=== PATIENT | male | born 1980 | race Caucasian/White ===

== ENCOUNTER 2025-09-12 14:18 | Emergency (ER) | payer BC, SELFPAY ==
--- OUTSIDE RECORDS SUMMARY | 2025-09-12 14:20 | XMS_ITS | Clinical Summary ---
[facility] Address [address], [place] [address] Care Team Providers Care Airport Refueling Handler Name Role Phone Found, No Pcp MD Primary Care Provider Unavailab le Source Comments You are receiving this document as you are listed as the primary care provider,follow-up provider, or the patient has been referred to you for consultation.This is in compliance with the Medicare and[facility] EHR Incentive Program,which states Providers who transition their patient to another setting of careor provider of care or refers their patient to another provider of care shouldprovide summary care record for each transition of care or referral. [facility] Allergies No known active allergies Medications No known medications Active Problems Problem Noted Date Diagnosed Date Closed fracture of part of fibula 07/15/2009 Overview (06/02/2017): LW Modifier: Left distal fibula fx and ankle sprain LW Onset: 14Jul2007 ; Fx Fibula NOS Closed Immunizations Immunization Administration Dates Next Due DTP 07/21/1981,02/14/1980,1979 ,1979 Hib (ActHIB) 07/21/1981 MMR 03/21/1984 OPV, Trivalent (Orimune or tOPV) 06/01/1985,03/11,02/14/1980,1979 TDAP (BOOSTRIX) 03/26/2015 Family History Medical History Relation Name Comments Anesthesia Reaction Negative Family History Broken Bones Negative Family History Cancer Negative Family History Clotting Disorder Negative Family History Diabetes Negative Family History Heart Disease Negative Family History Osteoporosis Negative Family History Rheumatologic Disease Negative Family History Social History Tobacco Use Types Packs/Day Years Used Date Smoking Tobacco: Former Cigarettes 1 4 Smokeless Tobacco: Never Comments:Quit smoking: Alcohol Use Standard Drinks/Week Comments Yes 0 (1 standard drink = 0.6 oz pur e alcohol) PHQ-2 Answer Date Recorded PHQ-2 Score 0 10/21/2021 Sex and Gender Information Value Date Recorded Sex Assigned at Not on file Legal Sex Male 3:28 AM CDT Gender Identity Not on file Sexual Orientation Not on file Last Filed Vital Signs Vital Sign Reading Time Taken Comments Blood Pressure 115/74 10/21/2021 1:26 PM SNOWBOARD INSTRUCTOR Pulse 78 10/21/2021 1:26 PM SNOWBOARD INSTRUCTOR Temperature 36.9 C (98.5 F) 10/21/2021 1:26 PM SNOWBOARD INSTRUCTOR Respiratory Rate 16 11/03/2016 2:24 PM SNOWBOARD INSTRUCTOR Oxygen Saturation 96% 12/30/2007 5:33 AM CDT Inhaled Oxygen Concentration - - Weight 90.4 kg (199 lb 6.4 oz) 10/21/2021 1:26 P M SNOWBOARD INSTRUCTOR Height 179.1 cm (5' 10.5) 11/03/2016 2:24 PM CS T Body Mass Index 28.21 11/03/2016 2:24 PM SNOWBOARD INSTRUCTOR Plan of Treatment Health Maintenance Due Date Last Done Comments Colon Cancer Screening Plan Due 1979 Hep C Screening (Preventive Services) 1979 HIV Screening (Preventive Services) 1995 Adult Preventive Visit 1997 HepB Vaccine (1) 1998 Cholesterol 2014 DTaP/Tdap/Td Vaccine (6 - Tdap) 03/26/2025 03/26/2015, 03/26/2015 (Completed), 07/21/1981, Additional history exists COVID-19 Vaccine (2 - season) 2025 09/18/2021 Influenza Vaccine (#1) 2025 Zoster/Shingles Vaccine (1 of 2) 2029 Hib Vaccine Completed 07/21/1981 IPV (Polio) Vaccine Completed 06/01/1985, 03/21/1981, 02/14/1980, Additional history exists HepA Vaccine Aged Out No longer eligi ble based on patient's age to complete this topic MCV4 Vaccine Aged Out No longer eligi ble based on patient's age to complete this topic Meningococcal B Vaccine Aged Out No l onger eligible based on patient's age to complete this topic Pneumococcal Vaccine Aged Out No long er eligible based on patient's age to complete this topic Insurance [facility] Care Teams Airport Refueling Handler Relationship Specialty Start Date End Date Found, No Pcp, [address] [place] [address] PCP - General 06/11/16
[2025-09-12 14:22] VITALS: BP 125/75; PULSE 69; RESP 18; TEMP 37; O2SAT 98; BMI 27.3
[2025-09-12 15:59] LABS: Hematocrit* 43.2 % (37.0-53.0); Hemoglobin* 14.9 gm/dL (13.5-17.5); Immature Granulocytes Abs Auto 0.01 K/uL (0.00-0.30); Immature Granulocytes Pct Auto 0.2 %; Lymphocytes Absolute Auto 1.66 K/uL (0.90-2.90); Mean Corpuscular HGB Conc 35 gm/dL (32-36); Mean Corpuscular Hemoglobin 32 pg (26-34); Mean Corpuscular Volume 92 fL (80-100); RDW Coefficient of Variation % 11.8 % (11.5-15.5); Red Blood Count* 4.71 m/uL (4.30-5.90); White Blood Count* 5.36 K/uL (4.50-11.00)
--- NOTE | 2025-09-12 16:03 | ED.GENADULT ---
HPI - General Adult General Time Seen by Provider: 16:03 Date Seen: 09/12/25 Chief complaint: Chest Pain Stated complaint: Chest pain Time Seen by Provider: 09/12/25 15:30 Source: patient Mode of arrival: ambulatory Limitations: no limitations History of Present Illness HPI narrative: Tomas is a 45-year-old male no real past medical history presents emergency department via private car with ongoing chest pain. Patient states he was on vacation last year and developed some upper chest pain and was seen in a [facility], workup there was benign. He did not follow-up as planned. Still lives in [place] but comes up here for work, this has been going on over the last 3 weeks, he did notice he has had some continuous chest pain on left side of his chest some radiation to his back which is there all the time. He does get some intermittent sharp pains to the area, sometimes he feels fluttering in his chest. Denies any cardiac history, no family history of cardiac disease, denies any smoking, he occasionally uses alcohol. Patient does get very anxious when he has this residual chest pain, making symptoms worse. 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 Denies any shortness of breath with the pain, no changes with inspiration, denies any diaphoresis, lightheadedness dizziness, no nausea vomiting or abdominal pain he has not had any urinary complaints no diarrhea. Patient is right-handed, does not do any heavy lifting. Pain is minimal at this time. Related Data Home Medications ?Medication ?Instructions ?Recorded ?Confirmed No Known Home Medications 09/12/25 09/12/25 Allergies Allergy/AdvReac Type Severity Reaction Status Date / Time No Known Drug Allergies Allergy Verified 09/12/25 17:19 Review of Systems Status of ROS: Reports: 10 or more systems reviewed and unremarkable except as noted in History and below PFSH PFS Social History Smoking Status: Unknown if ever smoked How often do you have a drink containing alcohol: never AUDIT-C Alcohol total score: 0 Non-prescribed substance use: denies use Exam Narrative: Exam Narrative: General: No obvious distress sitting comfortably HEENT: Pupils equal round reactive to light, extraocular muscles intact Neck: Supple Lungs: Clear to auscultation bilaterally Heart: Normal sinus rhythm, S1S2 There is some mild tenderness to palpation the left anterior chest wall Muscle skeletal: There is some tenderness to palpation this medial to his left scapula Abdomen: Soft nontender, bowel sounds present Neuro: Alert awake and oriented x3 Psych: Mood and affect normal Const: Vital Signs, click to edit/add: Vital Signs - 24 hr 09/12/25 14:22 09/12/25 16:40 Temperature 98.6 F 98.6 F Pulse Rate [Pulse Oximeter] 69 71 Respiratory Rate 18 18 Blood Pressure [Ri ght Upper Arm] 125/75 115/76 Pulse Oximetry 98 98 Oxygen Delivery Me thod Room Air Room Air Course Course ED Course: 3:45 PM: aidet performed, vitals are normal at this time, workup will include IV peripheral, 15 mg IV Toradol for his atypical chest pain, will obtain EKG, troponin T, D-dimer, CBC, CRP, CMP, lipase, differential includes chest wall pain, STEMI, NSTEMI, ACS, unstable angina, unstable angina, dissection, pleurisy, pneumonia, heart failure, anxiety as well as other etiologies. ED disposition pending clinical course Reevaluation(s) Time of Reevaluation #1: 17:54 Reevaluation #1: IMPRESSION: No pulmonary embolism. No focal consolidations. Please note that all CT scans at this facility use dose modulation, iterative reconstruction, and/or weight-based dosing when appropriate to reduce radiation dose to as low as reasonably achievable. EKG showed no acute ST changes, troponin I<0.01, imaging showed no acute cardiopulmonary process, D-dimer was negative, CBC showed no leukocytosis or anemia, comprehensive metabolic panel showed normal electrolytes, LFTs and renal function, symptom onset was 2 weeks ago, will not plan to repeat, he is feeling better after above care given, follow-up arranged with primary care provider here in [place], discussion can be made about outpatient stress echo, continue with Motrin and/or Tylenol every 4-6 hours as needed for discomfort. Return precautions given. Vital Signs Vital signs: Initial Vital Signs Temperature 98.6 F 09/12/25 14:22 Temperature Source Temporal Artery Scan 09/12/25 14:22 Pulse Rate 69 09/12/25 14:22 Respiratory Rate 18 09/12/25 14:22 Blood Pressure 125/75 09/12/25 14:22 Blood Pressure Mean 91 09/12/25 14:22 Pulse Oximetry 98 09/12/25 14:22 Oxygen Delivery Method Room Air 09/12/25 14:22 Vital Signs Temperature 98.6 F 09/12/25 14:22 Pulse Rate 69 09/12/25 14:22 Respiratory Rate 18 09/12/25 14:22 Blood Pressure 125/75 09/12/25 14:22 Pulse Oximetry 98 09/12/25 14:22 Oxygen Delivery Method Room Air 09/12/25 14:22 Temperature 98.6 F 09/12/25 16:40 Pulse Rate 71 09/12/25 16:40 Respiratory Rate 18 09/12/25 16:40 Blood Pressure 115/76 09/12/25 16:40 Pulse Oximetry 98 09/12/25 16:40 Oxygen Delivery Method Room Air 09/12/25 16:40 Medications Administered Medications: Discontinued Medications Generic Name Dose Route Start Last Admin Trade Name Freq PRN Reason Stop Dose Admin Ketorolac Tromethamine 15 mg 09/12/25 16:01 09/12/25 16:27 Ketorolac 15 Mg/Ml Inj IVP 09/12/25 16:02 15 mg ONCE ONE Administration Medical Decision Making Lab Data Labs: Lab Results 09/12/25 09/12/25 Range/Units 15:47 16:27 WBC 5.36 (4.50-11.00) K/uL RBC 4.71 (4.30-5.90) m/uL Hgb 14.9 (13.5-17.5) gm/dL Hct 43.2 (37.0-53.0) % MCV 92 (80-100) fL MCH 32 (26-34) pg MCHC 35 (32-36) gm/dL RDW Coeff of Josias 11.8 (11.5-15.5) % Plt Count 292 (140-440) K/uL Neut % (Auto) 55.4 (42.0-72.0) % Lymph % (Auto) 31.0 (20-44) % Hanson % (Auto) 12.1 H (0.0-11.0) % Eos % (Auto) 0.7 (0.0-7.0) % Baso % (Auto) 0.6 (0.0-3.0) % Neut # (Auto) 2.97 (1.7-7.0) K/uL Lymph # (Auto) 1.66 (0.90-2.90) K/uL Hanson # (Auto) 0.60 (0.00-0.90) K/UL Eos # (Auto) 0.04 (0.00-0.50) K/uL Baso # (Auto) 0.03 (0.00-0.30) K/uL Abs Immat Gran (auto) 0.01 (0.00-0.30) K/uL Imm/Tot Granulo (auto) 0.2 % D-Dimer Quant (PE/DVT) < 0.27 (0.00-0.50) ug/ml Sodium 139 (135-149) mmol/L Potassium 4.5 (3.6-5.1) mmol/L Chloride 100 (96-114) mmol/L Carbon Dioxide 28 (20-32) mmol/L Anion Gap 11 (7-15) mEq/L BUN 13 (5-24) mg/dL Creatinine 1.2 (0.5-1.5) mg/dL Estimated Creat Clear 81.92 Estimated GFR 76 ml/min Glucose 102 (60-115) mg/dL Calcium 9.1 (8.4-10.6) mg/dL Total Bilirubin 1.3 (0.1-1.5) mg/dL AST 22 (12-35) U/L ALT 23 (4-50) U/L Alkaline Phosphatase 42 (40-150) U/L Troponin I < 0.01 (0.01-0.04) ng/mL C-Reactive Protein < 0.5 L < 0.5 L (0.5-1.0) mg/dL Total Protein 7.4 (6.0-8.3) g/dL Albumin 4.6 (3.3-5.0) g/dL Lipase 93 (23-300) U/L Discharge Plan Discharge Clinical Impression: Atypical chest pain Patient Disposition: Home, Self-Care Condition: Improved Instructions: Chest Pain (ED) Additional Instructions: To call the Clinic and set up an appointment with Dr. Maite GAR, discuss at that time about a Stress Echo on outpatient basis, continue with Motrin and Tylenol every 6 hours as needed for discomfort. Return if worsening symptoms. Activity Level: No Restrictions Prescriptions: No Action No Known Home Medications Follow Up/Referrals: Provider,Not a Local [Primary Care Provider, Family Practice] Stand Alone Forms: [employer] Info Instructions
[2025-09-12 16:05] LABS: Slide Review Reflex No
[2025-09-12 16:12] LABS: Albumin* 4.6 g/dL (3.3-5.0); Chloride* 100 mmol/L (96-114); Potassium* 4.5 mmol/L (3.6-5.1); Sodium* 139 mmol/L (135-149)
[2025-09-12 16:14] LABS: Alanine Aminotransferase* 23 U/L (4-50); Aspartate Amino Transferase* 22 U/L (12-35); Blood Urea Nitrogen* 13 mg/dL (5-24); Creatinine* 1.2 mg/dL (0.5-1.5); Est. Creatinine Clearance* 81.92; Estimated Glomerular Filt Rate 76 ml/min
[2025-09-12 16:15] LABS: Alkaline Phosphatase* 42 U/L (40-150); Anion Gap 11 mEq/L (7-15); Bilirubin Total* 1.3 mg/dL (0.1-1.5); Calcium* 9.1 mg/dL (8.4-10.6); Carbon Dioxide* 28 mmol/L (20-32); Glucose* 102 mg/dL (60-115); Total Protein* 7.4 g/dL (6.0-8.3)
--- OUTSIDE RECORDS SUMMARY | 2025-09-12 16:23 | XMS_ITS | Patient Health Record ---
Author Organization [facility] Address [address] [place] [address] Care Team Providers Care Oven Stripper Name Role Phone Update, PCP Primary Care Provider Unavailabl e Allergies No Known Allergies Reason For Referral No Information Plan Of Treatment No Information Medical (General) History Surgical History Surgery Date(Month/Year) plate put in right wrist
--- OUTSIDE RECORDS SUMMARY | 2025-09-12 16:24 | XMS_ITS | Clinical Summary ---
Author Organization [facility] Address [facility] [place] [address] Care Team Providers Care Plastic Production Machine Setter Name Role Phone No/Unknown, Pcp Primary Care Provider Unavailabl e Allergies No known active allergies Medications meloxicam (MOBIC) 7.5 MG tablet Take 1 tablet by mouth daily. 20 tablet 10/05/2024 Active Social History Tobacco Use Types Packs/Day Years Used Date Smoking Tobacco: Never Smokeless Tobacco: Never Tobacco Cessation:Counseling Given: Not Answered Sex and Gender Information Value Date Recorded Sex Assigned at Not on file Legal Sex Male 9:22 AM EST Gender Identity Not on file Sexual Orientation Not on file Last Filed Vital Signs Vital Sign Reading Time Taken Comments Blood Pressure 120/82 10/05/2024 1:00 PM EST Pulse 58 10/05/2024 1:00 PM EST Temperature 36.3 C (97.4 F) 10/05/2024 9:33 AM EST Respiratory Rate 14 10/05/2024 1:00 PM EST Oxygen Saturation 99% 10/05/2024 1:00 PM EST Inhaled Oxygen Concentration - - Weight 86.2 kg (190 lb) 10/05/2024 9:33 AM EST Height 180.3 cm (5' 11) 10/05/2024 9:33 AM EST Body Mass Index 26.5 10/05/2024 9:33 AM EST Plan of Treatment Health Maintenance Due Date Last Done Comments HIV TESTING 1994 HEP C 1997 LIPID PROFILE 1997 YEARLY PHYSICAL ADULT 18+ 1997 HEP B (1 of 3 - 19+ 3-dose series) 1998 TDAP (ONE-TIME) 2001 COLOGUARD 2024 COLONOSCOPY 2024 COLORECTAL CANCER SCREENING 2024 FECAL OCCULT BLOOD 2024 INFLUENZA (#1) 2025 COVID-19 Vaccine ( - 2024-2 6 season) 2025 DIABETIC SCREENING 10/05/2027 10/05/2024 MEN B Vaccine Aged Out No longer elig ible based on patient's age to complete this topic PNEUMOCOCCAL Aged Out No longer eligi ble based on patient's age to complete this topic RSV Immunization < 20 months Aged Out No longer eligible based on patient's age to complete this topic Procedures Procedure Name Priority Date/Time Associated Diagnosis Comments COMPREHENSIVE METABOLIC PANEL STAT 10/05/2024 11:46 AM EST from Last 3 Months or Most Recently Relevant to Health Maintenance Results * (ABNORMAL) COMPREHENSIVE METABOLIC PANEL (10/05/2024 11:46 AM EST) Glucose 104 74 - 104 mg/dL 10/05/2024 12:10 PM [facility] BUN 22(H) 9 - 20 mg/dL 10/05/2024 12:10 PM [facility] Creatinine 1.08 0.58 - 1.30 mg/dL 10/05/2024 12:10 PM [facility] BUN/Crea Ratio 20.4 7.0 - 25.0 10/05/2024 12:10 PM [facility] Sodium 138 135 - 144 mmol/L 10/05/2024 12:10 PM [facility] Potassium 4.0 3.5 - 5.1 mmol/L 10/05/2024 12:10 PM [facility] Chloride 101 98 - 110 mmol/L 10/05/2024 12:10 PM [facility] CO2 23 22 - 30 mmol/L 10/05/2024 12:10 PM [facility] Anion Gap 14 7 - 15 mmol/L 10/05/2024 12:10 PM [facility] Calcium 9.4 8.4 - 10.2 mg/dL 10/05/2024 12:10 PM [facility] Protein, Total 8.4(H) 6.3 - 8.2 g/dL 10/05/2024 12:10 PM [facility] Albumin 5.1(H) 3.5 - 5.0 g/dL 10/05/2024 12:10 PM [facility] A/G Ratio 1.5 1.1 - 1.8 10/05/2024 12:10 PM [facility] Alkaline Phosphatase 48 38 - 126 U/L 10/05/2024 12:10 PM [facility] AST (SGOT) 28 17 - 59 U/L 10/05/2024 12:10 PM [facility] ALT (SGPT) 32 <50 U/L 10/05/2024 12:10 PM [facility] Bilirubin, Total 1.3(H) 0.0 - 1.1 mg/dL 10/05/2024 12:10 PM [facility] Glomerular Filtration Rate (eGFR) >60.0 >=60.0 mL/min/1. 73 m2 10/05/2024 12:10 PM [facility] Comment:Calculation based on the Chronic Kidney Disease Epidemiology Collaboration (CKD-EPI) equation, based on the patient's legal sex without adjustment for race. Blood BLOOD SPECIMEN / Unknown Venipuncture / Unknown 10/05/2024 11:46 AM EST 10/05/2024 11:50 AM EST us Unassigned Er Physician Dinorah LABORATORY ORDERABL ES Final Result [facility] [address] [place] [address], [place] [phone] from Last 3 Months or Most Recently Relevant to Health Maintenance Insurance [facility] Advance Directives For more information, please contact: [phone] Healthcare Agents on File Name Relationship Healthcare Agent Relationshi p Communication Linda Maganalita Spouse Stated Bottoming Room Supervisor Care Teams Plastic Production Machine Setter Relationship Specialty Start Date End Date No/Unknown, Pcp PCP - General 10/05/24
[2025-09-12 16:31] LABS: D Dimer Quantitative* < 0.27 ug/ml (0.00-0.50)
[2025-09-12 16:40] VITALS: BP 115/76; PULSE 71; RESP 18; TEMP 37; O2SAT 98
--- NOTE | 2025-09-12 16:51 | CRLHL7_ITS ---
For Patients: As a result of the Century Cures Act, medical imaging exams and procedure reports are released immediately into your electronic medical record. You may view this report before your referring provider. If you have questions, please contact your health care provider. INDICATION: Shortness of breath, left-sided chest pain. TECHNIQUE: CT chest PE was acquired with 95 cc Isovue 370 IV contrast. MIP reconstructions were performed. COMPARISON: None. FINDINGS: Heart and vasculature: Contrast opacification of the pulmonary arterial tree is adequate. No sign of pulmonary embolism. Heart size is normal. Thoracic aorta and pulmonary artery are normal in caliber. Lungs and pleura: No suspicious nodules or infiltrates. Scattered atelectasis. No pleural effusions, pleural thickening, or pneumothorax. Lymph nodes/mediastinum: No mediastinal, hilar, or axillary adenopathy. Chest wall: No masses. Upper abdomen: No acute or significant findings. Bones: Unremarkable for age. IMPRESSION: No pulmonary embolism. No focal consolidations. Please note that all CT scans at this facility use dose modulation, iterative reconstruction, and/or weight-based dosing when appropriate to reduce radiation dose to as low as reasonably achievable. Dictated by Samm Elizondo MD @ 09/12/2025 5:45:35 PM (Electronically Signed)
[2025-09-12 18:34] VITALS: BP 110/59; PULSE 59; RESP 18; O2SAT 97
== END 2025-09-12 18:39 | disposition home or self-care (01) ==
PROVIDERS: Emergency Provider Student in an Organized Health Care Education/Training Program
DX: R07.89 Other chest pain (principal); F41.9 Anxiety disorder, unspecified
CPT/HCPCS: 36415; 71275; 80053; 83690; 84484; 85025; 85379; 86140; 93005; 96374; 99283; 99284; 99285; J1885; Q9967